=== PATIENT | female | born 1960 | race Hispanic/Latino ===

== ENCOUNTER 2021-02-06 12:09 | Outpatient (CLI) | payer OTHER | END 2021-02-06 12:10 | disposition home or self-care (01) | LOC: PF 12:09 | PROVIDERS: ATTEND Internal Medicine | DX: J44.9 Chronic obstructive pulmonary disease, unspecified (principal); J32.1 Chronic frontal sinusitis; Z02.71 Encounter for disability determination | CPT/HCPCS: 94010; 94729 ==